=== PATIENT | male | born 1940 | race Caucasian/White ===

== ENCOUNTER → 2016-05-22 | Outpatient (CLI) | payer BC ==
[~2016-05-22] MED LIST: ASPIRIN PO; ASPIRIN81 M2 PO; CARVEDILOL25 MG PO; CIPRO PO; COREG PO; CORGARD PO; COUMADIN PO; CRESTOR PO; FLOMAX0.4 M1 PO; FLOMAX0.4 MG PO; GLUCOSAMINE-CH1 EA23 PO; LASIX PO; LASIX20 MG PO; LIPITOR PO; LISINOPRIL PO; LOVENOX80 MG/0.8 INJ; NIASPAN PO; NIASPAN1000 M2 PO; OMEPRAZOLE20 M2 PO; SYNTHROID PO; SYNTHROID112 MCG PO; ZESTRIL40 MG PO
== END | disposition home or self-care (01) ==
LOC: SLAB 08:13
DX: C61 Malignant neoplasm of prostate (principal)
CPT/HCPCS: 36415; G0103

== ENCOUNTER → 2016-06-27 | Outpatient (CLI) | payer BC | END | disposition home or self-care (01) | LOC: SLABONLY 08:00 | DX: R97.20 Elevated prostate specific antigen [PSA] (principal) | CPT/HCPCS: 36415; G0103 ==